=== PATIENT | female | born 1985 | race Caucasian/White ===

== ENCOUNTER 2019-03-24 00:15 | Emergency (ER) | payer OTHER ==
[~2019-03-24] VITALS: Ht 177.8 cm; Wt 95.3 kg
--- NOTE | 2019-03-24 00:25 | NUR ---
ED Nurse Note: Patient walked in to ER from work, c/o nausea, lower abd pain, constipation. States working at [employer], and was so busy to drink water. AAO x4, VSS at this time, skin is dry warm to touch.
[2019-03-24 00:40] VITALS: BP 145/87
[2019-03-24] MEDS ORDERED: DiphenhydrAMINE 50mg/ml Inj IVP ONE (01:00)
[2019-03-24] MEDS ORDERED: D5NS 1,000 ML IV ONE (01:00)
[2019-03-24] MEDS ORDERED: Metoclopramide 10mg/2ml Inj IVP ONE (01:00)
[2019-03-24] MEDS ORDERED: Omnipaque-300 100ml vial INJ PRN (01:00)
[2019-03-24] MEDS ORDERED: Magnesium Citrate Liq Btl ORAL ONE (01:00)
--- NOTE | 2019-03-24 01:02 | Emergency Room Report ---
History of Present Illness General Chief Complaint: Abdominal Pain Source: Patient Present Illness HPI 34-year-old female, presents with lower abdominal pain, constipation x5 hours, last moment 3 days ago patient endorses crampy abdominal pain no aggravating relieving factors severity is mild, intermittent, patient is concerned she may have a bowel obstruction she denies any vomiting she does endorse some nausea, patient presents for evaluation Allergies: Coded Allergies: No Known Allergies (Unverified , 03/24/19) Patient History Past Medical History: see triage record Last Menstrual Period: feb 27, 2019 Now: No Reviewed Nursing Documentation: PMH: Agreed; PSxH: Agreed Nursing Documentation-PMH Past Medical History: No Stated History Review of Systems All Other Systems: negative except mentioned in HPI Physical Exam Vital Signs Date Time Temp Pulse Resp B/P (MAP) Pulse Ox O2 Delivery O2 Flow Rate FiO2 03/24/19 00:27 98.1 84 16 145/87 (106) 97 Room Air Sp02 EP Interpretation: reviewed, normal General Appearance: well appearing, no apparent distress, alert Head: normocephalic, atraumatic Eyes: bilateral eye PERRL, bilateral eye EOMI ENT: uvula midline, moist mucus membranes Neck: supple, thyroid normal, supple/symm/no masses Respiratory: lungs clear, no respiratory distress, no retraction, no accessory muscle use Cardiovascular #1: normal peripheral pulses, regular rate, rhythm, no edema, no gallop, no murmur Gastrointestinal: non tender, soft, no guarding, no rebound Musculoskeletal: normal inspection Neurologic: alert, oriented x3 Psychiatric: mood/affect normal Skin: no rash, warm/dry Medical Decision Making Diagnostic Impression: Primary Impression: Constipation Qualified Codes: K59.00 - Constipation, unspecified ER Course 34-year-old female presents with constipation abdominal cramping, patient differential includes appendicitis, diverticulitis, constipation Patient did not want CT scan, knows risks and benefits, only wants upright KUB Fleet enema, labs obtained, magnesium citrate also given Patient with elevated WBC most likely 2/2 acute stress reaction Reevaluation 2:10 AM, patient made a large massive stool Patient felt better after magnesium citrate and Fleet enema Laboratory Tests Test 03/24/19 01:05 White Blood Count 15.9 K/UL (4.8-10.8) H Red Blood Count 5.32 M/UL (4.20-5.40) Hemoglobin 15.1 G/DL (12.0-16.0) Hematocrit 43.5 % (37.0-47.0) Mean Corpuscular Volume 82 FL (80-99) Mean Corpuscular Hemoglobin 28.4 PG (27.0-31.0) Mean Corpuscular Hemoglobin Concent 34.7 G/DL (32.0-36.0) Red Cell Distribution Width 13.2 % (11.6-14.8) Platelet Count 287 K/UL (150-450) Mean Platelet Volume 6.2 FL (6.5-10.1) L Neutrophils (%) (Auto) 83.9 % (45.0-75.0) H Lymphocytes (%) (Auto) 11.3 % (20.0-45.0) L Monocytes (%) (Auto) 4.2 % (1.0-10.0) Eosinophils (%) (Auto) 0.1 % (0.0-3.0) Basophils (%) (Auto) 0.5 % (0.0-2.0) Sodium Level 132 MMOL/L (136-145) L Potassium Level 3.8 MMOL/L (3.5-5.1) Chloride Level 98 MMOL/L (98-107) Carbon Dioxide Level 25 MMOL/L (21-32) Anion Gap 9 mmol/L (5-15) Blood Urea Nitrogen 20 mg/dL (7-18) H Creatinine 0.9 MG/DL (0.55-1.30) Estimate Glomerular Filtration Rate > 60 mL/min (>60) Glucose Level 107 MG/DL (74-106) H Calcium Level 8.8 MG/DL (8.5-10.1) Total Bilirubin 0.2 MG/DL (0.2-1.0) Aspartate Amino Transferase (AST) 17 U/L (15-37) Alanine Aminotransferase (ALT) 21 U/L (12-78) Alkaline Phosphatase 59 U/L (46-116) Total Protein 7.5 G/DL (6.4-8.2) Albumin 3.6 G/DL (3.4-5.0) Globulin 3.9 g/dL Albumin/Globulin Ratio 0.9 (1.0-2.7) L Lipase 332 U/L (73-393) Human Chorionic Gonadotropin, Quant 3 mIU/mL (1-6) Other X-Ray Diagnostic Results Other X-Ray Diagnostic Results : X-Ray ordered: KUB upright # of Views/Limited Vs Complete: 3 View Indication: Pain EP Interpretation: Yes Interpretation: other - Large stool burden Impression: Other - Large stool burden Electronically Signed by: Gamaliel Griffith MD Last Vital Signs Date Time Temp Pulse Resp B/P (MAP) Pulse Ox O2 Delivery O2 Flow Rate FiO2 03/24/19 00:27 98.1 84 16 145/87 (106) 97 Room Air Disposition: HOME, SELF-CARE Condition: Stable Scripts Polyethylene Glycol 3350* (MIRALAX*) 17 Gm Powd.pack 17 GM ORAL DAILY, #60 PACKET Prov: Gamaliel Griffith MD 03/24/19 Referrals: Ck Chang MD Patient Instructions: Constipation, Adult, [id number] Additional Instructions: The patient was provided with discharge instructions, notified to follow-up with a primary care doctor and or specialist in the next 24-48 hours, and to return to the ED if they have worsening of their symptoms. Please note that this report is being documented using [employer] technology. This can lead to erroneous entry secondary to incorrect interpretation by the dictating instrument. Gamaliel Griffith MD Mar 24, 2019 01:02
[2019-03-24 01:30] LABS: ANION GAP 9 mmol/L (5-15); BLOOD UREA NITROGEN 20 mg/dL (7-18); CALCIUM 8.8 MG/DL (8.5-10.1); CARBON DIOXIDE 25 MMOL/L (21-32); CHLORIDE 98 MMOL/L (98-107); CREATININE 0.9 MG/DL (0.55-1.30); POTASSIUM 3.8 MMOL/L (3.5-5.1); SODIUM 132 MMOL/L (136-145)
[2019-03-24 01:33] LABS: BASOPHILS % (AUTO) 0.5 % (0.0-2.0); EOSINOPHILS % (AUTO) 0.1 % (0.0-3.0); HEMATOCRIT 43.5 % (37.0-47.0); HEMOGLOBIN 15.1 G/DL (12.0-16.0); LYMPHOCYTES % (AUTO) 11.3 % (20.0-45.0); MEAN CORPUSCULAR VOLUME 82 FL (80-99); MONOCYTES % (AUTO) 4.2 % (1.0-10.0); NEUTROPHILS % (AUTO) 83.9 % (45.0-75.0); PLATELET COUNT 287 K/UL (150-450); RED BLOOD COUNT 5.32 M/UL (4.20-5.40); RED CELL DISTRIBUTION WIDTH 13.2 % (11.6-14.8); WHITE BLOOD COUNT 15.9 K/UL (4.8-10.8)
[2019-03-24 01:34] LABS: ALANINE AMINOTRANSFERASE 21 U/L (12-78); ALBUMIN 3.6 G/DL (3.4-5.0); ALBUMIN/GLOBULIN RATIO 0.9 (1.0-2.7); ALKALINE PHOSPHATASE 59 U/L (46-116); ASPARTATE AMINO TRANSFERASE 17 U/L (15-37); BILIRUBIN,TOTAL 0.2 MG/DL (0.2-1.0)
[2019-03-24] MEDS ORDERED: Fleet's Mineral Oil Enema RECTAL ONE (02:00)
[2019-03-24] MEDS ORDERED: Fleet's Enema 133ml RECTAL ONE ×2 (02:00→02:15)
[2019-03-24] MEDS ORDERED: MIRALAX17 G2 ORAL (02:12)
[2019-03-24 02:33] VITALS: BP 145/87
--- NOTE | 2019-03-24 02:34 | NUR ---
ER DISCHARGE NOTE: Patient is cleared to be discharged per ERMD, pt is aox4, on room air, with stable vital signs. pt was given dc and prescription instructions, pt was able to verbalize understanding, pt id band and iv site removed without complications. pt is able to ambulate with steady gait. pt took all belongings.
--- NOTE | 2019-03-24 09:36 | Diagnostic Imaging Report ---
Indication: Abdominal pain Comparison: None Single view of the abdomen obtained Findings: There is a fairly extensive amount of fecal retention within the colon. Bowel gas pattern is nonobstructive. Bones are unremarkable. IMPRESSION: Severe constipation
== END 2019-03-24 02:35 | disposition home or self-care (01) ==
LOC: EMR 00:39
DX: K59.00 Constipation, unspecified (principal); R10.9 Unspecified abdominal pain
CPT/HCPCS: 36415; 74018; 80053; 83690; 84702; 85025; 96361; 96365; 96375; 99284; J2765; J7030